=== PATIENT | female | born 1995 | race African-American/Black ===

== ENCOUNTER 2018-03-01 00:18 | Emergency (ER) | payer OTHER ==
[~2018-03-01] VITALS: Ht 167.6 cm; Wt 64.4 kg
[2018-03-01 00:20] VITALS: BP 116/74
[2018-03-01] MEDS ORDERED: IBUPROFEN600 MG ORAL (00:54)
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
[2018-03-01 01:00] VITALS: BP 116/74
--- NOTE | 2018-03-01 10:23 | Diagnostic Imaging Report ---
Indication: Chest pain Comparison: None A single view chest radiograph was obtained. Findings: Cardiomediastinal appearance is within normal limits for age. Pulmonary vascularity is appropriate. The diaphragmatic contour is smooth and costophrenic angles are sharp. No pleural effusions are identified. The bones are unremarkable. Impression: No acute findings
== END 2018-03-01 01:00 ==
LOC: EDBD 00:18 → EMR 00:25
DX: S20.219A Contusion of unspecified front wall of thorax, initial encounter (principal); V43.52XA Car driver injured in collision with other type car in traffic accident, initial encounter; Y92.410 Unspecified street and highway as the place of occurrence of the external cause; J45.909 Unspecified asthma, uncomplicated; Z91.018 Allergy to other foods
CPT/HCPCS: 71045; 99283